=== PATIENT | male | born 1980 | race Caucasian/White ===

== ENCOUNTER 2016-11-08 12:26 | Observation (INO) | payer OTHER ==
[~2016-11-08] VITALS: Ht 182.9 cm; Wt 83.9 kg
[2016-11-08] MEDS ORDERED: OMEPRAZOLE20 MG PO (12:40)
[2016-11-08] MEDS ORDERED: MULTI VITAMIN1 EACH PO (12:40)
[2016-11-08] MEDS ORDERED: OSTERA TABLET1 EACH (12:41)
--- NOTE | 2016-11-08 16:13 | NUR ---
PATIENT TO ROOM VIA WHEELCHAIR. DR QUINTANILLA WAS TO ASSESS AND DISCUSS PLAN OF CARE FOR PATIENT. PATIENT DENIES PAIN AND NAUSEA. ASSESSMENT DONE BY RUSLAN WOODWARD. ABD TENDER TO PALPATION. SKIN INTACT. IV SITE PATENT AND FLUID INFUSING WELL. CONSENT SIGNED BY PATIENT FOR SURGERY TOMORROW. VS WNL. PATIENT ORIENT TO ROOM. CALL LIGHT AND PERSONAL BELONGING WITHIN PATIENT REACH. WATER GIVEN PER MD ORDER (CLEAR LIQUID). WILL CONTINUE TO MONITOR.
--- NOTE | 2016-11-08 17:08 | NUR ---
MED REC COMPLETE WITH BIMART REFILL HISTORY.
--- NOTE | 2016-11-08 17:35 | NUR ---
PT USED BATHROOM AND IS NOW BACK IN BED EATING DINNER PT DID NOT NEED ANYTHING ELSE
--- NOTE | 2016-11-08 17:48 | NUR ---
PATIENT ADMITTED FROM ED. TO FLOOR, A&O. ABD TENDERNESS ON PALPATION. NO NAUSEA. TOLERATED CLEAR LIQUID WELL. IV FLUID INFUSING AT 85ML/HR. INDEPENDENT IN ROOM. NPO AT MIDNIGHT. SURGERY IN THE AM. CONSENT IN CHART SIGNED. REPORT NO PAIN ON ADMISSION.
--- NOTE | 2016-11-08 20:00 | NUR ---
RECEIVED REPORT AROUND 1900. FOUND PT IN BED WITH FAMILY AT BEDSIDE. PT DENIED N/V OR ABD PAIN AT THAT TIME.
--- NOTE | 2016-11-08 22:58 | NUR ---
ABD SOUNDS PRESENT IN ALL QUADRANTS. PT RATES PAIN AT A 2, PT RECEIVED 2MG OF IV MORPHINE. V/S ARE WNL. AT AROUND 2130 PT RECEIVED IV ANCEF AND IV PEPCID 20MG. PER REPORT THEY ARE COMPATABLE. WHEN I ATTEMPTED TO IV PUSH THE PEPSID INTO THE LINE, THE FLUID IN THE LINE TURNED WHITE. I QUICKLY PULLED IT OUT WITH MY ATTACHED SYRINGE AND LOCKED THE IV ON THE IV TAIL AND THEN TURNED OFF THE IV PUMP. BURIAL NEEDS SALESPERSON WAS NOTIEFIED AND AN IRIS WAS FILED. I CHANGED OUT THE IV TUBING.
--- NOTE | 2016-11-09 01:01 | NUR ---
PT IS SLEEPING AT THIS TIME.
--- NOTE | 2016-11-09 04:00 | NUR ---
PT IS SLEEPING AT THIS TIME.
--- NOTE | 2016-11-09 04:45 | NUR ---
PT OVERALL HAD AN UNEVENTFUL NIGHT. PT HAS DENIED N/V. PT RECEIVED 2MG OF IV MORPHINE X1. PT HAS BEEN NPO SINCE 0000. CONSENT IS IN CHART. LR BAG IS HUNG. V/S ARE WNL, FAMILY IS AT BEDSIDE.
--- NOTE | 2016-11-09 07:10 | NUR ---
BEDSIDE REPORT RECEIVED FROM CRISSY CAMPBELL, ASSUMED CARE OF PT. PT RESTING IN BED, AND DAUGHTER AT BEDSIDE. PT HAS NO REQUESTS AT THIS TIME, NO NAUSEA, PAIN REPORTED. LR INFUSING AT 85 ML/HR. PT HAS CALL LIGHT WITHIN REACH, WILL REASSESS.
--- NOTE | 2016-11-09 08:19 | NUR ---
PT ASSESSMENT COMPLETE. PT AWAKE IN BED WATCHING TV, AT BEDSIDE. PT LUNGS SOUND CLEAR THROUGHOUT. NO NAUSEA, PAIN NOTED. PT STATES ABDOMEN NOT IN PAIN OR TENDER AT THIS TIME. PT CONTINUES TO BE NPO, IV INFUSING AT 85 ML/HR D5 LR. PT HAS CALL LIGHT IN REACH.
--- NOTE | 2016-11-09 10:30 | NUR ---
PT IN CHAIR, WAS UP FOR SHOWER. TOLERATED WELL, PT HAS NO COMPLAINTS OF PAIN OR NAUSEA. LR INFUSING AT 85 ML/HR, IV LINE PATENT. DISCUSSED EXPECTED SURGERY TIME OF 1230 WITH PT. CALL LIGHT NEXT TO PT.
--- NOTE | 2016-11-09 11:23 | NUR ---
PT BACK IN BED. PRE SURGERY CHECKLIST COMPLETE. PT INFORMED OF EXPECTED SURGERY TIME OF 1330. PT AT BEDSIDE. NO COMPLAINTS OF PAIN AT THIS TIME. WILL CONTINUE TO REASSESS. CALL LIGHT WITH PATIENT.
--- NOTE | 2016-11-09 11:55 | NUR ---
DR. AHMADI IN TO SEE PATIENT. PATIENT AND 'S QUESTIONS ANSWERED REGARDING SURGERY AND POSSIBLE DISCHARGE AFTER. PATIENT STATES NO CONCERNS AT THIS TIME. CALL LIGHT AT BEDSIDE.
--- NOTE | 2016-11-09 12:29 | NUR ---
PT SITTING IN CHAIR, ALERT, ORIENTED AND NPO FOR SURGERY SCHEDULED FOR THIS AFTERNOON. HE SEEMS TO BE TAKING IT ALL IN STRIDE-JUST WANTS TO GET BACK TO WORK. PT REQUESTED PRAYER, WILL FOLLOW NEEDED
--- NOTE | 2016-11-09 13:37 | NUR ---
PATIENT WENT TO SURGERY AT THIS TIME.
--- NOTE | 2016-11-09 16:11 | NUR ---
PATIENT UP IN BED. GOT READY FOR SHOWER. HAS CALL LIGHT. PUT SCDS ON
--- NOTE | 2016-11-09 16:39 | NUR ---
11/09/16 1639 Liya Garcia 1636 PATIENT ARRIVES TO PACU AWAKE BUT DROWSY, FOLLOWS COMMANDS, NODS HEAD APPROPRIATELY TO QUESTIONS. RESP EVEN AND UNLABORED. MASK AT 6 LITERS. DENIES PAIN OR NAUSEA. RESTING WITH EYES CLOSED.
[2016-11-09] MEDS ORDERED: OXYCODON-ACETA1 EAC2 PO (16:52)
--- NOTE | 2016-11-09 17:05 | NUR ---
PT BACK TO FLOOR FROM SURGERY. REPORT RECEIVED FROM WELDING FOREMAN. PT AWAKE, ALERT. STATING PAIN OF 5/10 AFTER TRANSFERRING FROM [facility] TO HOSPITAL BED. PT STATES NO NAUSEA. ADMINISTERED IV MORPHINE 2 MG FOR PAIN.
--- NOTE | 2016-11-09 17:48 | NUR ---
PT STATES THAT MORPHINE HELPED PAIN. PT REPORTING THAT HE FEELS TIGHTNESS WHERE THE INCISION SITES ARE STATING "LIKE I DID A HUNDRED SIT UPS". DOES NOT RATE PAIN AT THIS TIME. PT CONTINUES TO DENY NAUSEA. BREATH SOUNDS NORMAL, BREATHING SHALLOW DUE TO DISCOMFORT. SCDS ON PT. IV FLUID INFUSING AT 85 ML/HR. SATURATIONS MAINTAINED AT 99% AFTER RETURN TO FLOOR. PT AT BEDSIDE. CALL LIGHT IN REACH.
--- NOTE | 2016-11-09 18:07 | NUR ---
PT TAKEN TO SURGERY AT 1337, RETURNED AT 1705 ALERT AND ORIENTED. PT STATED PAIN OF 5/10, RECEIVED PRN MORPHINE 2MG. PT STATED THAT MORPHINE MANAGED PAIN, HOWEVER STILL FEELS TIGHTNESS OVER SURGICAL SITES. PT HAS FOUR LAPROSCOPIC SITES ON ABDOMEN COVERED WITH STERI STRIPS AND OPEN TO AIR. SITES HAVE SCANT AMOUNT OF SEROSANGUINOUS DRAINAGE. PTS LUNG SOUND CLEAR, BUT BREATHING IS SHALLOW DUE TO SURGERY. PT HAD NO COMPLAINTS OF NAUSEA, ON REGULAR DIET. PT TOLERATED DINNER, ORAL FLUIDS, HAS IV FLUIDS INFUSING AT 85 ML/HR. BOWEL SOUNDS ACTIVE IN ALL QUADRANTS. PT HAS DISCHARGE ORDERS IN PLACE BY , BUT WILL STAY UNTIL RETURNS SHE HAD TO GO OUT OF TOWN TO [facility] [facility], NO CAREGIVER TO ASSIST HIM, PROBABLE DISCHARGE IN AM.
--- NOTE | 2016-11-09 18:33 | NUR ---
PT COMPLAINING OF NAUSEA AFTER EATING JELLO, DRINKING APPLE JUICE. IV ZOFRAN 4MG ADMINISTERED TO PT.
--- NOTE | 2016-11-09 19:30 | NUR ---
RECEIVED REPORT AT 1900. FOUND PT IN BED EATING DINNER. PT DENIED PAIN OR NAUSEA.
--- NOTE | 2016-11-09 21:48 | NUR ---
ALL LOBES WERE CLEAR, ABD SOUNDS ARE HYPOACTIVE. MIDLINE LAP SITES ARE BLEEDING SOME AND NEEDED REINFORCEMENT WITH GAUZE AND TABE X2. PT VOIDED 250ML SINCE RETURNING FROM OR AROUND 1700. PT WALKED TO BATHROOM WITHOUT DIFFICULTY. V/S ARE WNL. GAVE PT A IS TO USE DURING EACH COMMERCIAL BREAK ON TV.
--- NOTE | 2016-11-10 00:55 | NUR ---
PT AT THIS TIME IS SLEEPING
--- NOTE | 2016-11-10 03:44 | NUR ---
PT IS SLEEPING AT THIS TIME.
--- NOTE | 2016-11-10 04:41 | NUR ---
PT AT START OF SHIFT HAS SOME BLEEDING FORM MIDLINE LAP SITES. GAUZE AND PRESSURE TAPE WAS APPLIED AND CHANGED X2. PT IS VOIDING WELL AND PO INTAKE IS GOOD. PT WAS SL AT 0130. PT HAS WALKED THE HALLWAY X2 SO FAR THIS SHIFT. AT START OF SHIFT BOWEL TONES WERE HYPOACTIVE. DURING SECOND ASSESSMENT BOWEL TONES WERE NORMAL ACTIVE. PT WILL LEAVE EARLY THIS MORINING. PT IS USING IS.
--- NOTE | 2016-11-11 11:31 | HP ---
[facility] [address] [place], [place] [address] Signed ADMIT DATE: 11/08/2016 REASON FOR ADMISSION: Calculous cholecystitis. HISTORY OF PRESENT ILLNESS: This is a 36-year-old white man who presents to the emergency room today and was evaluated by Dr. Blank with right upper abdominal and mid epigastric pain since this morning. He did have associated nausea. He has had vague pain in the past in this area, but nothing this severe as today. He underwent a gallbladder ultrasound as well as a CT scan, which confirmed multiple gallstones. Clinical findings are most consistent with acute cholecystitis and is admitted for further evaluation and care. PAST MEDICAL HISTORY: Rather unremarkable. He has not had surgery in the past, though he does describe reflux disease. MEDICATIONS: Include omeprazole 20 mg daily and multivitamin daily. SOCIAL HISTORY: He is . 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 He does not smoke or use alcohol particularly. PAST SURGICAL HISTORY: Does include vasectomy. REVIEW OF SYSTEMS: He denies any shortness of breath or chest pain. He has had no dysphagia or dysuria or hematemesis. Denies blood per rectum. Denies diarrhea. PHYSICAL EXAMINATION: GENERAL: Well-developed, well-nourished, somewhat bald white man who does not look severely uncomfortable at this time. HEENT: Mucous membranes are dry. NECK: Trachea is midline. CHEST: Clear. HEART: Regular without murmur. ABDOMEN: Nondistended and soft. There is minimal tenderness in the right epigastric area. EXTREMITIES: No clubbing, cyanosis, or edema. LABORATORY TESTS: Studies show a white count of 13.0, hematocrit 47.9, platelets 196,000. Chem profile is essentially normal. Liver enzymes are normal. Total protein elevated at 8.1, urinalysis Electronically Signed By: EDWIN AHMADI MD 11/11/16 1131 PATIENT NAME: ANGELITA SARMIENTO HISTORY AND PHYSICAL DATE OF : 84 PHYSICIAN: EDWIN AHMADI MD REPORT #: [id number] REPORT IS CONFIDENTIAL AND NOT TO BE RELEASED WITHOUT AUTHORIZATION [facility] [address] [place], [place] [address] Signed is negative. ASSESSMENT: He has had both a CT scan and an ultrasound and the CT scan shows no particular abnormality other than gallstones. The gallbladder ultrasound subsequently was performed through the emergency room showing many small mobile gallstones, but no gallbladder wall thickening at this point. The largest gallstone is 9.3 mm. The common duct appears to be normal. He has acute calculous cholecystitis. We discussed the pathophysiology of this problem in detail. Use of illustrations was undertaken as well. I would recommend fluid resuscitation, IV antibiotics, pain medication and a plan for operation tomorrow to include laparoscopic cholecystectomy with cholangiogram, possible open procedure. He understands risks of bleeding, infection, bile duct injury, need for open procedure, and of course, failure to cure his symptoms. He understands this and he wished to proceed. His symptoms seem to be somewhat in resolution now, though he still has tenderness. MD NATIVIDAD Tabor/Markel /[id number] cc: Wilma Yusuf PA-C Electronically Signed By: EDWIN AHMADI MD 11/11/16 1131 PATIENT NAME: TORSTENANGELITA RISHABH HISTORY AND PHYSICAL DATE OF : 84 PHYSICIAN: EDWIN AHMADI MD REPORT #: [id number] REPORT IS CONFIDENTIAL AND NOT TO BE RELEASED WITHOUT AUTHORIZATION
--- NOTE | 2016-12-22 10:36 | OR ---
[facility] [address] [place], [place] [address] Signed DATE OF PROCEDURE: 11/08/16 PREOPERATIVE DIAGNOSIS: Acute calculous cholecystitis. POSTOPERATIVE DIAGNOSES Acute calculous cholecystitis. Very short cystic duct. PROCEDURE Laparoscopic cholecystectomy with intraoperative cholangiogram (prolonged, complicated, difficult). Surgeon directed fluoroscopy. SURGEON: Edwin Ahmadi MD. ANESTHESIA: General endotracheal. INDICATION This 36-year-old white male was admitted on November 08, 2016, with findings consistent with acute cholecystitis including ultrasound and CT scan finding showing a thickened dilated gallbladder with multiple gallstones. He has been fluid resuscitated, given intravenous antibiotics and is admitted to undergo cholecystectomy. He understands the risks of operation including but not limited to, bleeding, infection, bile duct injury, need for open procedure, and of course failure to cure the problem. Understands that and he wished to proceed. FINDINGS The gallbladder was definitely tense and distended and packed with multiple yellow gallstones. Of great note was a very dilated, but very small cystic duct. Clips were applied to the cystic duct adjacent to the common duct without impediment to the common duct, but this finding was definitely notable and complications were averted with careful operation. The operation was rather prolonged, complicated, and difficult on the basis of the extent of edema and so on. DESCRIPTION OF PROCEDURE The patient was brought to the operating room, given a general endotracheal anesthetic. Preoperative antibiotic Ancef was given. Sequential compression device stockings were used and heparin subcutaneously administered. After satisfactory general endotracheal anesthesia, the abdomen was prepared with a Chlorhexidine solution and draped sterilely. An infraumbilical incision was made, and using an open Evie cannula technique, pneumoperitoneum was achieved to a level of 14 mmHg with carbon dioxide gas. Intraabdominal inspection showed no sign of ascites or carcinomatosis. Gallbladder was Electronically Signed By: EDWIN AHMADI MD 12/22/16 1036 PATIENT NAME: ANGELITA SARMIENTO OPERATIVE REPORT DATE OF : 84 PHYSICIAN: EDWIN AHMADI MD REPORT #: [id number] REPORT IS CONFIDENTIAL AND NOT TO BE RELEASED WITHOUT AUTHORIZATION [facility] [address] [facility] [place], [place] [address] Signed noted to be markedly distended, edematous, and inflamed. The liver appeared normal. Three additional trocars were placed in usual configuration at subxiphoid, right midclavicular, and right anterior axillary line. The fatty infundibulum of the gallbladder was dissected free from the infundibulum of the gallbladder revealing an underlying cystic duct. The cystic du c t appeared to be relatively dilated. Using meticulous dissection, the cystic duct was more fully dissected and ultimately found to be extremely short. The common bile duct was easily identified and unharmed. Photographs were taken. The clips were applied a cross the gallbladder cystic duct junction as high as possible and a transverse choledochotomy made in the cystic duct. Retrograde milking of the cystic duct showed no sign of stones. Using an Lucas type cholangiocatheter, intraoperative cholangiography was undertaken showing free flow of contrast in the biliary tree with prompt emptying into the duodenal. There was no sign of filling defect or biliary anomaly. The cystic duct and its short nature was confirmed on the x-ray. The catheter was removed and extremely careful application of 3 clips to the remnant of the cystic duct were undertaken, the one closest to the common bile duct, essentially adjacent to it, but not impinging on it in the slightest. Using sharp parrot scissors, the cystic duct was freed from the gallbladder itself. The gallbladder was retracted cephalad and laterally and using blunt and electrocautery dissection, the triangle of Calot was dissected free freeing the gallbladder entirely from the gallbladder. The gallbladder was extracted through the infraumbilical port site, opened on the back table and found to have multiple yellow multifaceted gallstones. Mucosa was very acutely inflamed, but without sign of neoplasm. Irrigation was undertaken in subhepatic space. There was no sign of b i le leak, bleeding, or other problems. The trocars were removed under direct visualization and the infraumbilical fascial incision reapproximated with interrupted 0 Vicryl suture. All wounds were copiously irrigated with saline solution and skin closed with interrupted 3-0 Vicryl. Steri-Strips were applied. The operation was prolonged, complicated, and difficult on the basis of anatomic factors, obesity and inflammation, but was accomplished safely. MD NATIVIDAD Tabor/Modl /[id number] Electronically Signed By: EDWIN AHMADI MD 12/22/16 1036 PATIENT NAME: ANGELITA SARMIENTO OPERATIVE REPORT DATE OF : 84 PHYSICIAN: EDWIN AHMADI MD REPORT #: [id number] REPORT IS CONFIDENTIAL AND NOT TO BE RELEASED WITHOUT AUTHORIZATION [address] [address] Signed cc: Wilma Yusuf PA-C Electronically Signed By: EDWIN AHMADI MD 12/22/16 1036 PATIENT NAME: ANGELITA SARMIENTO OPERATIVE REPORT DATE OF : 84 PHYSICIAN: EDWIN AHMADI MD REPORT #: [id number] REPORT IS CONFIDENTIAL AND NOT TO BE RELEASED WITHOUT AUTHORIZATION
== END 2016-11-10 06:23 | disposition home or self-care (01) ==
LOC: ED 12:26 → MS 12:27
PROVIDERS: ADMIT Surgery
PROC: BF101ZZ Fluoroscopy of Bile Ducts using Low Osmolar Contrast (ICD-10-PCS; 2016-11-09)
PROC: 0FT44ZZ Resection of Gallbladder, Percutaneous Endoscopic Approach (ICD-10-PCS; principal; 2016-11-09 13:00)
DX: K80.00 Calculus of gallbladder with acute cholecystitis without obstruction (principal); K21.9 Gastro-esophageal reflux disease without esophagitis; E66.9 Obesity, unspecified; Z68.25 Body mass index [BMI] 25.0-25.9, adult; Z79.899 Other long term (current) drug therapy
CPT/HCPCS: 00790; 74177; 74300; 76700; 80053; 81001; 82150; 83690; 85025; 96361; 96372; 96374; 96375; 99285; G0378; J0690; J1170; J1644; J1885; J2270; J2405; J2704; J3010; J7030; J7120; Q9967

== ENCOUNTER 2017-03-15 07:20 | Day surgery (SDC) | payer OTHER ==
[~2017-03-15] VITALS: Ht 182.9 cm; Wt 85.3 kg
[~2017-03-15 07:20] MED LIST: MULTI VITAMIN1 EACH PO; OMEPRAZOLE20 MG PO; OSTERA TABLET1 EACH; OXYCODON-ACETA1 EAC2 PO
--- NOTE | 2017-03-15 08:54 | NUR ---
PT ALERT ORIENTED AND SUPPORTED BY HIS . BOTH VERY PLEASANT PEOPLE, WITH FOLLOW UP EGD. THEY BOTH SEEMED INFORMED, FEW QUESTIONS. PT REQUESTED PRAYER, WILL FOLLOW NEEDED
--- NOTE | 2017-03-15 09:08 | NUR ---
03/15/17 0908 Marcia Childress 0900 PT GETTING DRESSED DENIENS ANY PROBLEMS AT THIS TIME.
--- NOTE | 2017-03-15 17:22 | OR ---
[facility] [address] [place], [place] [address] Signed DATE OF OPERATION: SURGEON: Edwin Ahmadi MD PREOPERATIVE DIAGNOSIS: Clinical gastroesophageal reflux with spontaneous regurgitation, long-standing. POSTOPERATIVE DIAGNOSES: 1. Normal-appearing esophagus and marginal flap valve. 2. Mild antral gastritis. PROCEDURE: Esophagogastroduodenoscopy with biopsy. ANESTHESIA: Intravenous sedation with fentanyl 100 mcg and Versed 4 mg. INDICATION: This 37-year-old white man is a patient of Dr. Elías Chavez with longstanding gastroesophageal reflux symptoms. His symptoms do include spontaneous regurgitation and episodic dysphagia. He has been on omeprazole for several years. He has never undergone upper endoscopy to better characterize the problem and to assess for Gutierrez's epithelium. He is admitted to undergo upper endoscopy at this time. He understands the risks of bleeding, infection, and perforation. FINDINGS: Esophageal mucosa was entirely normal. The flap valve was marginal, but there was no sign of large hiatal hernia. There was mild antral gastritis. The duodenum was normal. CLOtest was -15 minutes post procedure. DESCRIPTION OF PROCEDURE: The patient was brought to the endoscopy suite and given topical Hurricaine spray hypopharyngeal anesthesia and placed in lateral decubitus position. A bite block was placed. Intravenous sedation was induced to point of slurred speech and nystagmus. An Olympus video upper endoscope was passed in the hypopharynx. The vocal cords appeared normal. The scope was advanced to the esophagus without problem. An examination of the esophagus completely showed no evidence of inflammation, Gutierrez's epithelium, neoplasm, or other problem. The scope was advanced to the stomach, which was insufflated with air. Rugal folds were normal. There was mild antral gastritis. The pylorus was normal. Scope was passed through into the duodenum, which appeared normal. Biopsies were taken of the duodenum. The ampulla of Vater appeared normal. The scope was withdrawn from the Electronically Signed By: EDWIN AHMADI MD 03/15/17 1722 PATIENT NAME: ANGELITA SARMIENTO OPERATIVE REPORT DATE OF : 84 PHYSICIAN: EDWIN AHMADI MD REPORT #: [id number] REPORT IS CONFIDENTIAL AND NOT TO BE RELEASED WITHOUT AUTHORIZATION [facility] [address] [place] [id number] Signed antrum, where biopsies were obtained for both DARIN and pathologic testing. Retroflexed view was undertaken showing a somewhat marginal flap valve, but certainly no sign of large hiatal hernia. Scope was straightened and withdrawn to the distal esophagus, where biopsies were taken of the normal-appearing mucosa. Careful withdrawal of scope showed no other abnormalities. The scope was removed and the patient was taken to recovery room in good condition. CONCLUDING DIAGNOSIS: Clinical reflux symptoms including spontaneous regurgitation and episodic dysphagia, but no evidence of esophagitis proper. Flap valve is marginal. PLAN: We will continue with GERD therapy to include PPI medication and see me back in the next several weeks for review of pathology reports and clinical assessment. MD NATIVIDAD Tabor/MARIANA /[id number] cc: Elías Chavez MD Electronically Signed By: EDWIN AHMADI MD 03/15/17 1722 PATIENT NAME: TORSTENANGELITA KEATING OPERATIVE REPORT DATE OF : 84 PHYSICIAN: EDWIN AHMADI MD REPORT #: [id number] REPORT IS CONFIDENTIAL AND NOT TO BE RELEASED WITHOUT AUTHORIZATION
== END 2017-03-15 09:15 | disposition home or self-care (01) ==
LOC: DS 07:20 → OPS 07:20 → DS 08:30 → OPS 09:15
PROVIDERS: Surgery
PROC: 0DB68ZX Excision of Stomach, Via Natural or Artificial Opening Endoscopic, Diagnostic (ICD-10-PCS; 2017-03-15)
PROC: 0DB38ZX Excision of Lower Esophagus, Via Natural or Artificial Opening Endoscopic, Diagnostic (ICD-10-PCS; 2017-03-15)
PROC: 0DB98ZX Excision of Duodenum, Via Natural or Artificial Opening Endoscopic, Diagnostic (ICD-10-PCS; principal; 2017-03-15 08:30)
DX: K29.50 Unspecified chronic gastritis without bleeding (principal); K29.80 Duodenitis without bleeding; K22.8 Other specified diseases of esophagus; K21.9 Gastro-esophageal reflux disease without esophagitis; E78.5 Hyperlipidemia, unspecified; K80.00 Calculus of gallbladder with acute cholecystitis without obstruction; Z79.899 Other long term (current) drug therapy; Z90.49 Acquired absence of other specified parts of digestive tract; Z98.890 Other specified postprocedural states
CPT/HCPCS: 99152; 99153; J2250; J3010; J7120